=== PATIENT | female | born 1975 | race Caucasian/White ===

== ENCOUNTER 2020-08-27 22:36 | Emergency (ER) | payer BC ==
[~2020-08-27] VITALS: Ht 154.9 cm; Wt 97.5 kg
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
--- NOTE | 2020-08-27 22:55 | NUR ---
DR OLSON AT BED SIDE
[2020-08-27] MEDS ORDERED: KETOROLAC TROMETHAMINE INJ 30 MG/ML VIAL ONE (23:30)
[2020-08-27] MEDS ORDERED: ACETAMINOPHEN 325 MG TABLET ONE (23:38)
[2020-08-27] MEDS: KETOROLAC TROMETHAMINE INJ 30 MG/ML VIAL IV ONE (23:42)
--- NOTE | 2020-08-27 23:42 | NUR ---
toradol inj was held due to pt unsure about her status.
[2020-08-27] MEDS: ACETAMINOPHEN 325 MG TABLET PO ONE (23:43)
--- NOTE | 2020-08-27 23:46 | NUR ---
dr carmona at bed side
[2020-08-27] MEDS ORDERED: IBUP-1958 PO (23:53)
[2020-08-28] MEDS ORDERED: oxyCODONE/APAP (5/325 MG) 1 UDTAB TABLET ONE (00:07)
[2020-08-28] MEDS ORDERED: OXYC5CAP18 PO (00:26)
[2020-08-28] MEDS: oxyCODONE/APAP (5/325 MG) 1 UDTAB TABLET PO ONE (00:37)
--- NOTE | 2020-08-28 00:37 | NUR ---
pt is medically stable for d/c. Patient discharged to home in stable condition. Rx and Written and verbal after care instructions given. Patient verbalizes understanding of instruction.pt was assisted to the 's car via [place]
[2020-08-28 00:39] VITALS: BP 129/88
== END 2020-08-28 00:39 | disposition home or self-care (01) ==
LOC: ER 22:39
DX: S97.82XA Crushing injury of left foot, initial encounter (principal); Z88.0 Allergy status to penicillin; W20.8XXA Other cause of strike by thrown, projected or falling object, initial encounter; Y93.89 Activity, other specified; Y92.89 Other specified places as the place of occurrence of the external cause; Y99.8 Other external cause status
CPT/HCPCS: 73630-TC; J1885